=== PATIENT | male | born 1990 ===

== ENCOUNTER 2018-04-08 15:53 | Emergency (ER) | payer OTHER ==
[2018-04-08 16:20] VITALS: RESP 18; O2SAT 99
[2018-04-08] MEDS ORDERED: Oxycodone/Acetaminophen 5/325 mg Tab PO STA (16:48)
--- NOTE | 2018-04-08 17:02 | ED PDOC ---
Arrival/HPI - General Chief Complaint: Back Pain Time Seen by Provider: 04/08/18 16:27 Historian: Patient - History of Present Illness Narrative History of Present Illness (Text): 04/08/18 16:40 This 28 yo male who denies pmh presents to this Emergency department complaining of b/l lower back pain x 3 days. Patient admits lifting small boxes at work, but he does not recall a recent injury. Patient denies fever, recent trauma, heavy lifting, skin rash, nausea, vomiting, weakness, paresthesias, GI/ incontinence, saddle anesthesias, urinary symptoms, or abnormal gait. Time/Duration: Other (see hpi) Quality: Aching Context: Home Past Medical History - Provider Review Nursing Documentation Reviewed: Yes - Psychiatric Hx Substance Use: No Family/Social History - Physician Review Nursing Documentation Reviewed: Yes Family/Social History: Other (noncontributory) Smoking Status: Never Smoked Hx Alcohol Use: No Hx Substance Use: No Allergies/Home Meds Allergies/Adverse Reactions: Allergies No Known Allergies Allergy (Verified 04/08/18 16:20) Review of Systems - Review of Systems Constitutional: Normal. absent: Fatigue, Weight Change, Fevers Eyes: Normal ENT: Normal Respiratory: Normal. absent: SOB, Cough Cardiovascular: Normal. absent: Chest Pain Gastrointestinal: Normal. absent: Abdominal Pain, Nausea, Vomiting Genitourinary Male: Normal. absent: Dysuria, Frequency, Hematuria Musculoskeletal: Back Pain. absent: Arthralgias, Neck Pain, Joint Swelling, Myalgias Skin: Normal. absent: Rash Neurological: Normal. absent: Headache, Dizziness, Focal Weakness, Gait Changes , Speech Changes, Facial Droop, Disequilibrium Endocrine: Normal Hemo/Lymphatic: Normal Psychiatric: Normal Physical Exam Vital Signs Temp Pulse Resp BP Pulse Ox 04/08/18 16:18 99.1 F 100 H 18 171/89 H 99 Temperature: Afebrile Blood Pressure: Normal Pulse: Regular Respiratory Rate: Normal Appearance: Positive for: Well-Appearing, Non-Toxic, Comfortable Pain Distress: None Mental Status: Positive for: Alert and Oriented X 3 - Systems Exam Head: Present: Atraumatic, Normocephalic Pupils: Present: PERRL Extroacular Muscles: Present: EOMI Conjunctiva: Present: Normal Mouth: Present: Moist Mucous Membranes Neck: Present: Normal Range of Motion Respiratory/Chest: Present: Clear to Auscultation, Good Air Exchange. No: Respiratory Distress, Accessory Muscle Use Cardiovascular: Present: Regular Rate and Rhythm, Normal S1, S2. No: Murmurs Abdomen: No: Tenderness, Distention, Peritoneal Signs Back: Present: Normal Inspection, Paraspinal Tenderness ((+) mild b/l paravertebral tenderness. No vertebral point tenderness. No vertebral step off.). No: CVA Tenderness, Midline Tenderness, Pain with Leg Raise, Decubitus Ulcer Upper Extremity: Present: Normal Inspection, Normal ROM. No: Cyanosis, Edema Lower Extremity: Present: Normal Inspection, NORMAL PULSES, Normal ROM, Neurovascularly Intact, Capillary Refill < 2 s. No: Edema Neurological: Present: GCS=15, CN II-XII Intact, Speech Normal, Motor Func Grossly Intact, Normal Sensory Function, Normal Cerebellar Funct, Gait Normal Skin: Present: Warm, Dry, Normal Color. No: Rashes Psychiatric: Present: Alert, Oriented x 3, Normal Insight, Normal Concentration Medical Decision Making ED Course and Treatment: 04/08/18 17:19 Re-evaluation. Patient feels better. Discussed results and plan with patient who expresses understanding. All questions answered and there is agreement with the plan to discharge home with instructions. Patient stable for discharge. Return if symptoms persist or worsen. Re-evaluation Time: 17:19 Reassessment Condition: Re-examined, Improved - RAD Interpretation Narrative RAD Interpretations (Text): 04/08/18 17:18 L-spine x-rays: No fx Radiology Orders: 04/08/18 16:48 LS SPINE WITH OBL > 18 YRS OLD [RAD] Stat - Medication Orders Current Medication Orders: Discontinued Medications Ketorolac Tromethamine (Toradol) 30 mg IM STAT STA Stop: 04/08/18 16:49 Ondansetron HCl (Zofran Odt) 4 mg PO STAT STA Stop: 04/08/18 16:49 Oxycodone/Acetaminophen (Percocet 5/325 Mg Tab) 1 tab PO STAT STA Stop: 04/08/18 16:49 Disposition/Present on Arrival - Present on Arrival Any Indicators Present on Arrival: No History of DVT/PE: No History of Uncontrolled Diabetes: No Urinary Catheter: No History of Decub. Ulcer: No History Surgical Site Infection Following: None - Disposition Have Diagnosis and Disposition been Completed?: Yes Diagnosis: Back pain Disposition: HOME/ ROUTINE Disposition Time: 17:19 Patient Plan: Discharge Condition: GOOD Discharge Instructions (ExitCare): Low Back Pain in Adults Additional Instructions: Call private doctor for follow up visit in 1-2 days. Take medication as instructed with food. Return to emergency if symptoms worsen. Do not drive or operate machinery for at least 12 hours if you use Valium . Prescriptions: diaZEpam [Valium] 5 mg PO DAILY #7 tab Naproxen 500 mg PO BID PRN #14 tablet PRN Reason: Pain, Severe (8-10) Forms: [facility] (Czech), WORK NOTE
[2018-04-08 23:19] VITALS: BP 165/85; PULSE 92; TEMP 99
--- NOTE | 2018-04-09 11:09 | RAD ---
PROCEDURE: Radiographs of the Lumbar Spine. HISTORY: pain COMPARISON: No prior. FINDINGS: BONES: Normal alignment. No listhesis. No fracture. DISC SPACES: Unremarkable. OTHER FINDINGS: None. IMPRESSION: Unremarkable radiographs of the lumbar spine.
== END 2018-04-08 17:35 | disposition home or self-care (01) ==
LOC: ED 15:53
DX: M54.5 Low back pain (principal)
CPT/HCPCS: 72110; 96372; 99282; J1885

== ENCOUNTER 2018-10-25 10:13 | Emergency (ER) | payer OTHER ==
[2018-10-25 10:14] VITALS: BMI 31.6
[2018-10-25 10:33] VITALS: BP 136/82; PULSE 98; RESP 18; TEMP 98.9; O2SAT 98
--- NOTE | 2018-10-25 11:09 | ED PDOC ---
Arrival/HPI - General Chief Complaint: Abnormal Skin Integrity Time Seen by Provider: 10/25/18 10:14 Historian: Patient - History of Present Illness Narrative History of Present Illness (Text): 10/25/18 11:26 28-year-old male presents today for packing removal of an abscess to the buttocks. Patient was seen in the emergency room 2 days ago and had incision and drainage of a pilonidal abscess. Patient states he is taking antibiotics twice daily. Patient states the pain is greatly improved. No fevers or chills. No abdominal pain. No other complaints. Past Medical History - Provider Review Nursing Documentation Reviewed: Yes - Travel History Have you recently traveled outside [place] w/in the past 3 mons?: No - Infectious Disease Hx of Infectious Diseases: None - Psychiatric Hx Substance Use: No - Anesthesia Hx Anesthesia: Yes Hx Anesthesia Reactions: No Hx Malignant Hyperthermia: No Family/Social History - Physician Review Nursing Documentation Reviewed: Yes Family/Social History: Unknown Family HX Smoking Status: Never Smoked Hx Alcohol Use: No Hx Substance Use: No Allergies/Home Meds Allergies/Adverse Reactions: Allergies No Known Allergies Allergy (Verified 10/23/18 14:46) Review of Systems - Review of Systems Constitutional: absent: Fatigue Respiratory: absent: SOB, Cough Cardiovascular: absent: Chest Pain Gastrointestinal: absent: Abdominal Pain, Nausea, Vomiting Musculoskeletal: absent: Arthralgias Skin: Abscess Psychiatric: absent: Anxiety, Depression Physical Exam Vital Signs Reviewed: Yes Vital Signs Temp Pulse Resp BP Pulse Ox 10/25/18 10:14 98.9 F 98 H 18 136/82 98 Temperature: Afebrile Blood Pressure: Normal Pulse: Regular Respiratory Rate: Normal Appearance: Positive for: Well-Appearing, Non-Toxic, Comfortable Pain Distress: None Mental Status: Positive for: Alert and Oriented X 3 - Systems Exam Head: Present: Atraumatic Mouth: Present: Moist Mucous Membranes Respiratory/Chest: Present: Clear to Auscultation Cardiovascular: Present: Regular Rate and Rhythm Abdomen: No: Tenderness Upper Extremity: Present: Normal ROM Lower Extremity: Present: Normal ROM Neurological: Present: GCS=15, Speech Normal Skin: Present: Warm, Dry, Normal Color, Abscess (packing noted to the buttock crease; no surrounding erythema; minimal edema, minimal induration. ) Psychiatric: Present: Alert, Oriented x 3 Medical Decision Making ED Course and Treatment: 10/25/18 11:09 Patient is nontoxic well-appearing in no distress. Vital signs are stable. Packing removed from buttocks crease. No erythema, no tenderness, minimal induration no purulent discharge Patient was advised to use warm compresses warm soaks patient was advised to follow-up with the surgeon within the next 2 days. Patient was advised to continue antibiotics as prescribed. return immediately if symptoms worsen persist or if new symptoms develop Patient verbalizes understanding of discharge instructions and need for immediate followup. all aspects of this case were discussed the attending of record. Impression: Abscess, buttock Continue antibiotics as prescribed Warm compresses and warm soaks frequently Follow-up with the surgeon within the next 2 days Follow-up the primary care physician within the next 2 days Return immediately if symptoms worsen persist or if new symptoms develop: High fevers, increasing pain, increasing redness, swelling or if any other concerning symptoms develop. 10/25/18 11:29 Disposition/Present on Arrival - Present on Arrival Any Indicators Present on Arrival: No History of DVT/PE: No History of Uncontrolled Diabetes: No Urinary Catheter: No History of Decub. Ulcer: No History Surgical Site Infection Following: None - Disposition Have Diagnosis and Disposition been Completed?: Yes Diagnosis: Abscess, Wound check, abscess Disposition: HOME/ ROUTINE Disposition Time: 11:08 Patient Plan: Discharge Condition: GOOD Discharge Instructions (ExitCare): Nissa ([place]SE[place]) Print Language: [place] Additional Instructions: Continue antibiotics as prescribed Warm compresses and warm soaks frequently Follow-up with the surgeon within the next 2 days Follow-up the primary care physician within the next 2 days Return immediately if symptoms worsen persist or if new symptoms develop: High fevers, increasing pain, increasing redness, swelling or if any other concerning symptoms develop. Referrals: [facility] [Outside] - Follow up with primary [facility] [Outside] - Follow up with primary Frederick Gonzalez MD [Staff Provider] - Follow up with primary Gosia Salcido MD [Medical Doctor] - Follow up with primary Forms: [facility] ([place]), WORK NOTE
== END 2018-10-25 11:33 | disposition home or self-care (01) ==
LOC: ED 10:13
DX: Z48.00 Encounter for change or removal of nonsurgical wound dressing (principal); L05.01 Pilonidal cyst with abscess